=== PATIENT | male | born 1960 | race Caucasian/White ===

== ENCOUNTER 2022-10-20 13:48 | Outpatient (CLI) | payer BC, SELFPAY ==
--- NOTE | 2022-10-20 14:00 | CRLHL7_ITS ---
For Patients: As a result of the Century Cures Act, medical imaging exams and procedure reports are released immediately into your electronic medical record. You may view this report before your referring provider. If you have questions, please contact your health care provider. DXA BONE MINERAL DENSITY STUDY Current height (in): 71.0. Weight (lb): 255.0. Menopause age: N/A. Ethnicity: White. Reason for exam: At risk for osteoporosis. 1. Have you had a previous hip or vertebral fracture? No. 2. Have you had any fractures during your adult life which did not result from significant trauma (e.g., auto accident)? No. 3. Did either of your parents have a hip fracture? No. 4. Do you smoke? No. 5. Have you ever taken Glucocorticoids? No. 6. Do you have rheumatoid arthritis? No. 7. Do you have secondary osteoporosis? No. 8. Do you drink 3 or more alcoholic drinks per day? No. 9. Are you being treated for osteoporosis? No. 10. Have you ever taken any of the following medications: Actonel, Evista, Fosamax, Miacalcin, Reclast, Boniva, Forteo, HRT (i.e. estrogen/hormone therapy), Protelos, Prolia, Vitamin D, Calcium, other ??? please specify. ANSWER: Yes, calcium, vitamin D. 11. Do you have any of the following medical conditions: Anorexia or bulimia, asthma or emphysema, end stage renal disease, hyperparathyroidism, any seizure disorders, cancer, inflammatory bowel diseases, hysterectomy, other ??? please specify. ANSWER: Yes, cancer. 12. What was your maximum height (inches)? 71. 13. Do you perform weight bearing exercise regularly? No. 14. Do you regularly consume dairy products? Yes. 15. Do you drink caffeinated beverages? Yes. TECHNIQUE: Bone mineral density study was performed using the [employer]. FINDINGS: The results of the study expressed as bone mineral density (BMD) are as follows: Lumbar spine L1 to L4: BMD: 1.146 g/cm2. T-score: 0.5. Z-score: 1.2. Neck Left: BMD: 0.813 g/cm2. T-score: -0.9. Z-score: 0.1. Right: BMD: 0.763 g/cm2. T-score: -0.5. Z-score: 0.5. Total Left: BMD: 1.018 g/cm2. T-score: -0.1. Z-score: 0.4. Right: BMD: 0.951 g/cm2. T-score: -0.5. Z-score: -0.1. IMPRESSION: Normal bone density. Aman Valentin M.D. Diagnostic Radiologist [email or web address] Transcribed: 4:08 pm DW/Dictated by: Aman Valentin MD @ 10/20/2022 3:05:00 PM (Electronically Signed)
== END 2022-10-20 13:49 | disposition home or self-care (01) ==
LOC: RAD 13:50
PROVIDERS: PCP Family Medicine
DX: Z91.89 Other specified personal risk factors, not elsewhere classified (principal)
CPT/HCPCS: 77080